=== PATIENT | female | born 1985 | race American Indian/Alaskan Native ===

== ENCOUNTER 2021-08-28 07:06 | Outpatient (CLI) | payer OTHER ==
[2021-08-28 08:04] LABS: Blood Urea Nitrogen 10 mg/dL (7-17)
--- NOTE | 2021-08-28 10:29 | Cat Scan Report ---
CT ABDOMEN AND PELVIS WITHOUT AND WITH IV CONTRAST INDICATION: R10.2 PELVIC PAIN, SURGICAL PAIN POST MYOMECTOMY . COMPARISON: None available. TECHNIQUE: All CT scans at this location are performed using CT dose reduction for ALARA by means of automated e xposure control. Axial CT images were obtained through the abdomen and pelvis before and after 100 cc of Omnipaque 30 0 IV contrast. FINDINGS: Lung Bases: No acute abnormality. Skeletal System: No acute abnormality. ABDOMEN: Liver: No significant abnormality. Gallbladder: No significant abnormality. Bile Ducts: No significant abnormality. Adrenals: No significant abnormality. Right Kidney and Proximal Ureter: No significant abnormality. Left Kidney and Proximal Ureter: No significant abnormality. Pancreas: No significant abnormality. Spleen: No significant abnormality. Stomach and Bowel: No significant abnormality. Lymph Nodes: No significant adenopathy. Aorta: No significant abnormality. IVC: No significant abnormality. Additional Findings: None. PELVIS: Urinary Bladder and Distal Ureters: No significant abnormality. Appendix: No significant abnormality. Colon: No significant abnormality. Free Fluid: None. Lymph Nodes: No significant adenopathy. Additional Findings: The uterus and endometrium appear unremarkable. There are 2 left ovarian cysts m easuring 1.7 cm each. The right ovary is unremarkable surgical scar in the anterior pelvis is unremar kable. IMPRESSION: 1. No acute process in the abdomen or pelvis. 2. Left ovarian cysts as described. Signer Name: Rufino Soni Jr, MD Signed: 08/28/2021 10:24 AM Workstation Name: [id number]
== END 2021-08-28 07:07 | disposition home or self-care (01) ==
LOC: CT 07:06
PROVIDERS: ATTEND Obstetrics & Gynecology
DX: N83.202 Unspecified ovarian cyst, left side (principal); R10.2 Pelvic and perineal pain; G89.18 Other acute postprocedural pain
CPT/HCPCS: 36415; 74178; 82565; 84520; Q9967